=== PATIENT | female | born 1995 | race Caucasian/White ===

== ENCOUNTER 2020-04-16 08:05 | Day surgery (SDC) | payer OTHER ==
[~2020-04-16] VITALS: Ht 162.6 cm; Wt 61.8 kg
[~2020-04-16 08:05] MED LIST: MOBIC15 MG; NEXPLANON68 MG SUB-Q; SERTRALINE HCL25 MG PO; TENORMIN25 MG PO; WELLBUTRIN SR200 MG PO
[2020-04-16] MEDS ORDERED: ADDERALL XR 2525 MG PO (08:15)
[2020-04-16] MEDS ORDERED: HYDROCODON-ACE1 EA10 PO (10:04)
--- NOTE | 2020-04-16 10:12 | NUR ---
04/16/20 Renee2 Megan Suggs 1002- PT ARRIVES TO PACU NONAROUSABLE TO NOXIOUS STIMULI. RESP EVEN AND UNLABORED. OXYGEN SAT HIGH 90'S TO 100% ON 6L VIA MASK. 1004- PT NEEDED HER HEAD ADJUSTED TO CLEAR HER SNORING. 1008- OXYGEN TITRATED OFF. MASK REMOVED. PT REMAINS NONAROUSABLE TO NOXIOUS STIMULI. RESP EVEN AND UNLABORED. OXYGEN SAT HIGH 90'S TO 100% ON RA.
--- NOTE | 2020-04-18 08:05 | OR ---
[facility] [address] [place], [place] [address] Signed DATE OF OPERATION: 04/16/2020 SURGEON: Rafael Brannon MD PREOPERATIVE DIAGNOSIS: Carpal tunnel syndrome, right. POSTOPERATIVE DIAGNOSIS: Carpal tunnel syndrome, right. PROCEDURE PERFORMED: Right carpal tunnel release. RESEARCH PROGRAM MANAGER: CRISTO Pandey. ANESTHESIA: MAC with median nerve block. TOURNIQUET TIME: 15 minutes. BRIEF HISTORY: Gabriela is a 24-year-old female with persistent symptoms of carpal tunnel. She had tried splinting without significant relief and wished to proceed with operative intervention. Risks, benefits, and alternatives were discussed at length. She understood and wished to proceed. DESCRIPTION OF PROCEDURE: Once consent was obtained, she was taken to the operating room. After adequate anesthesia, she was placed on the operating room table. All downside pressure points well padded. Right arm was placed in well-padded proximal arm tourniquet and prepped and draped in a standard sterile fashion. The arm was then exsanguinated using Esmarch bandage and tourniquet inflated to 200 mmHg. A 1.5 cm incision was made in the distal wrist crease carried through skin and subcutaneous tissue. The palmaris longus was identified retracted and protected. The transverse carpal ligament was then identified and dissected free of overlying soft tissue under loupe magnification. It was then released proximally a cm distally to the distal extent. This was again done under direct visualization. The ligament was then palpated using the Scotrun and found to be completely released. The wound was closed again with antibiotic solution, closed with Electronically Signed By: RAFAEL BRANNON MD 04/18/20 0805 PATIENT NAME: GABRIELA OLSON OPERATIVE REPORT DATE OF : [birth year] REPORT #: [id number] PHYSICIAN: RAFAEL BRANNON MD PCP: AD GONGORA MD REPORT IS CONFIDENTIAL AND NOT TO BE RELEASED WITHOUT AUTHORIZATION [facility] [address] [place], [place] [address] Signed 3-0 nylon, dressed with bacitracin, Adaptic 4 x 8s, and gauze. Prior to dressing, we did infiltrate 7 mL of 0.25% plain Marcaine. She tolerated the procedure well. All sponge, needle, and instrument counts were correct. Rafael Brannon MD BA/MODL /[id number] Copies: ~ Electronically Signed By: RAFAEL BRANNON MD 04/18/20 0805 PATIENT NAME: GABRIELA OLSON OPERATIVE REPORT DATE OF : [birth year] REPORT #: [id number] PHYSICIAN: RAFAEL BRANNON MD PCP: AD GONGORA MD REPORT IS CONFIDENTIAL AND NOT TO BE RELEASED WITHOUT AUTHORIZATION
== END 2020-04-16 10:45 | disposition home or self-care (01) ==
LOC: DS 08:05 → OPS 08:05 → DS 09:45 → OPS 10:45
PROVIDERS: ATTEND Specialist
PROC: 01N50ZZ Release Median Nerve, Open Approach (ICD-10-PCS; principal; 2020-04-16 09:45)
DX: G56.01 Carpal tunnel syndrome, right upper limb (principal); Z79.899 Other long term (current) drug therapy
CPT/HCPCS: 01810; 64450; 76942; J0690; J1100; J2001; J2250; J2704; J3010; J7121

== ENCOUNTER 2020-07-23 15:43 | Emergency (ER) | payer SELFPAY ==
[~2020-07-23] VITALS: Ht 162.6 cm; Wt 61.8 kg
[~2020-07-23 15:43] MED LIST changes: +ADDERALL XR 2525 MG PO; +HYDROCODON-ACE1 EA10 PO
--- OUTSIDE RECORDS SUMMARY | 2020-07-23 15:46 | XMS ---
PreManage Notification: GABIRELA OLSON [employer] Head Events No recent Security Events currently on file [facility] There are no care providers on record at this time. Sherley has no Care Guidelines for this patient. Matheus VISIT COUNT (12 MO.) 1 ANDRZEJ Mello TOTAL 1 NOTE: Visits indicate total known visits. ED/UCC VISIT TRACKING (12 MO.) 07/23/2020 15:43 ANDRZEJ Rodrigues OR TYPE: Emergency COMPLAINT: - MEDICAL CLEARANCE INPATIENT VISIT TRACKING (12 MO.) No inpatient visits to display in this time frame [email or web address]
== END 2020-07-23 19:40 | disposition home or self-care (01) ==
LOC: ED 15:43
DX: Z00.8 Encounter for other general examination (principal); Z79.899 Other long term (current) drug therapy
CPT/HCPCS: 80053; 80176; 84443; 84703; 85025; 99283